=== PATIENT | female | born 1945 | race Caucasian/White ===

== ENCOUNTER 2022-03-02 18:53 | Inpatient (IN) | payer MEDICARE ==
[~2022-03-02 18:53] MED LIST: Iopamidol-370 76% 500 ML 1 ML ONE
[2022-03-02 19:23] LABS: Hemoglobin 10.8 g/dL (12.0-16.0); Mean Corpuscular HGB CONC 33.5 g/dL (32.0-36.0); Mean Corpuscular Hemoglobin 30.9 pg (27.0-31.0); Mean Corpuscular Volume 92.2 fL (78.0-98.0); Mean Platelet Volume 7.8 fL (7.4-10.4); Platelet Count 347 thou/uL (130-400); RBC Distribution Width 12.5 % (11.5-14.5); Red Blood Cell (RBC) Count 3.49 mill/uL (4.20-5.40); White Blood Cell (WBC) Count 25.4 thou/uL (4.8-10.8)
[2022-03-02 19:37] LABS: Band 13 % (5-11); Lymphocytes 2 % (21-51); MDiff Complete? YES; Monocytes 5 % (0-10); Neutrophil 78 % (42-75); Ovalocytes SLIGHT = 2-5 cells (100X) (0-1/hpf); Platelet Morphology Comment Appears Adequate; Polychromasia SLIGHT = 2-3 cells (100X) (0-2/hpf); Reactive Lymphocytes 2 % (0-10)
[2022-03-02 19:40] LABS: ALT (SGPT) 12 U/L (8-55); AST (SGOT) 33 U/L (5-34); Albumin 2.5 g/dL (3.4-4.8); Alkaline Phosphatase 64 U/L (40-110); Anion Gap 17 mmol/L (10-20); BUN (Urea Nitrogen) 32 mg/dL (9.8-20.1); Bilirubin, Total 1.2 mg/dL (0.2-1.2); Calc. Creatinine Clearance 0 mL/min (70-130); Carbon Dioxide 20 mmol/L (23-31); Chloride 108 mmol/L (98-107); Estimated GFR 42; Glucose 145 mg/dL (83-110); Potassium 3.3 mmol/L (3.5-5.1); Protein, Total 4.5 g/dL (5.8-8.1); Sodium 142 mmol/L (136-145)
[2022-03-02 20:00] LABS: CKMB 2.7 ng/mL (0-6.6)
[2022-03-02] MEDS ORDERED: Diltiazem 125 MG/25 ML ONE (20:17)
[2022-03-02] MEDS ORDERED: Furosemide 40 MG/4 ML VIAL ONE (20:34)
[2022-03-02] MEDS ORDERED: cefTRIAXone\\ROCEPHIN 1 GM VIAL ONE (20:59)
[2022-03-02] MEDS ORDERED: Vancomycin 1 GM/200 ML BAG ONE (21:14)
[2022-03-02] MEDS ORDERED: Acetaminophen 650 MG Suppository PR PRN (21:33)
[2022-03-02] MEDS ORDERED: Meropenem 1 GM in Sodium Chloride 0.9% 100 ML IVPB SCH ×2 (21:45→22:15)
[2022-03-02] MEDS ORDERED: Magnesium 5 GM/10 ML Abboject SYRINGE FS SCH (22:15)
[2022-03-02] MEDS ORDERED: Sodium Bicarb 50 MEQ/50 ML Abboject 8.4% SYRINGE IVP SCH (22:15)
[2022-03-02] MEDS ORDERED: Sodium Bicarb 50 MEQ/50 ML VIAL IVP SCH (22:30)
[2022-03-02] MEDS ORDERED: Potassium Chloride 20 MEQ in Premix Bag 1 BAG IVPB SCH (23:00)
== END 2022-03-02 23:31 | disposition expired | DRG 871 ==
LOC: ERS 18:53 → IMCU/EMU 20:41
PROVIDERS: ADMIT Internal Medicine; ATTEND Internal Medicine
PROC: 3E03329 Introduction of Other Anti-infective into Peripheral Vein, Percutaneous Approach (ICD-10-PCS; principal; 2022-03-02)
PROC: 5A09357 Assistance with Respiratory Ventilation, Less than 24 Consecutive Hours, Continuous Positive Airway Pressure (ICD-10-PCS; 2022-03-02)
DX: A41.9 Sepsis, unspecified organism (principal); J96.01 Acute respiratory failure with hypoxia; N17.9 Acute kidney failure, unspecified; I24.8 Other forms of acute ischemic heart disease; K81.0 Acute cholecystitis; R65.20 Severe sepsis without septic shock; Z66 Do not resuscitate; Z51.5 Encounter for palliative care; K31.89 Other diseases of stomach and duodenum; K44.9 Diaphragmatic hernia without obstruction or gangrene; I10 Essential (primary) hypertension; E78.5 Hyperlipidemia, unspecified; J45.909 Unspecified asthma, uncomplicated; F32.A Depression, unspecified; R79.89 Other specified abnormal findings of blood chemistry; R91.1 Solitary pulmonary nodule; Z90.710 Acquired absence of both cervix and uterus
CPT/HCPCS: 36415; 71045; 71260; 74177; 82553; 83605; 83880; 84484; 87040; 93005; 94660; 96372; 96374; 96375; 99292; J0696; J1940; J3370; Q9967